=== PATIENT | female | born 1970 | race Caucasian/White ===

== ENCOUNTER → 2023-06-20 08:41 | Outpatient (CLI) | payer OTHER, SELFPAY ==
--- NOTE | 2023-06-20 08:46 | DI.RAD.S_ITS ---
PROCEDURE: XR LUMBAR SPINE 2-3V INDICATIONS: L SPINE PAIN TECHNIQUE: 3 views of the lumbar spine were acquired. COMPARISON: None. FINDINGS: Bones: 5 [id number] vertebrae are present. There is normal bony alignment. No vertebral body compression fractures. No suspicious bony lesions. Convex right thoracolumbar scoliosis. Disc space narrowing and facet joints noted at the thoracolumbar junction as well as lower lumbar spine Soft tissues: Overlying bowel gas pattern is normal. No suspicious soft tissue calcifications. IMPRESSION: Degenerative disc disease and arthropathy without malalignment Approved by: Jerry Meyer M.D. on 06/20/2023 at 18:55
== END ==
PROVIDERS: PCP Family Medicine; Referring Provider Family Medicine; Visit Provider Family Medicine
DX: M51.16 Intervertebral disc disorders with radiculopathy, lumbar region (principal); M47.26 Other spondylosis with radiculopathy, lumbar region; M54.9 Dorsalgia, unspecified
CPT/HCPCS: 72100

== ENCOUNTER → 2023-06-30 10:10 | Outpatient (CLI) | payer OTHER, SELFPAY ==
--- NOTE | 2023-06-30 | DI.MRI.S_ITS ---
PROCEDURE: MR LUMBAR SPINE WO CON INDICATIONS: Sciatica, right side TECHNIQUE: Noncontrast sagittal T1 spin echo and T2 fast echo, sagittal STIR, and T2 fast spin echo through the lumbar spine. In cases with scoliosis, additional coronal T2 fast spin echo may be performed. COMPARISON: None. FINDINGS: Image quality: Excellent. Alignment and Curvature: There is normal bony alignment. Bone Marrow: Marrow is of normal overall signal. No acute vertebral body compression fractures. Spinal Cord: Conus medullaris terminates at the L1 level. Visualized cord demonstrates normal signal and size. Paraspinous Soft Tissues: No paravertebral masses. T12-L1: Normal appearance. L1-L2: Broad-based disc bulge, opposing Modic changes, facet effusions. L2-L3: Bilateral facet arthrosis, right greater than left. L3-L4: Broad-based disc bulge, facet hypertrophy. L4-L5: Abnormal masslike appearance of the right L4 nerve root (series 5, image 23 and series 2, image 9). Facet hypertrophy and right facet effusion. L5-S1: Broad-based disc bulge, facet hypertrophy. 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 Recommend lumbar MRI with contrast for confirmation. Mild, multilevel degenerative disc disease and facet arthrosis. No significant spinal canal or neural foraminal narrowing. Dictated by: Bonilla Orozco M.D. on 07/01/2023 at 8:12 Approved by: Bonilla Orozco M.D. on 07/01/2023 at 8:21
== END ==
LOC: MRI 10:11
PROVIDERS: PCP Family Medicine; Referring Provider Family Medicine; Visit Provider Family Medicine
DX: M51.16 Intervertebral disc disorders with radiculopathy, lumbar region (principal); M51.17 Intervertebral disc disorders with radiculopathy, lumbosacral region; M47.26 Other spondylosis with radiculopathy, lumbar region; M47.27 Other spondylosis with radiculopathy, lumbosacral region; M54.9 Dorsalgia, unspecified; G54.9 Nerve root and plexus disorder, unspecified
CPT/HCPCS: 72148

== ENCOUNTER → 2023-08-01 07:37 | Outpatient (CLI) | payer OTHER, SELFPAY ==
--- NOTE | 2023-08-01 07:38 | DI.MRI.S_ITS ---
PROCEDURE: MR LUMBAR SPINE WO/W CON INDICATIONS: LUMBAR RADICULOPATHY TECHNIQUE: Noncontrast sagittal T1 spin echo and T2 fast spin echo, sagittal STIR, axial T1 and T2 fast spin echo through the lumbar spine. In cases with scoliosis, additional coronal T2 fast spin echo may be performed. After the administration of contrast, sagittal and axial T1 spin echo with fat saturation through the lumbar spine. COMPARISON: [facility], MR, MR LUMBAR SPINE WO CON, 06/30/2023, 11:00. FINDINGS: Image quality: Excellent. Alignment and curvature: Trace retrolisthesis of L1 on L2 and L3 on L4. Marrow: Marrow is of normal overall signal. No acute vertebral body compression fractures. No suspicious marrow enhancement. Spinal cord: Conus medullaris terminates at the T12-L1 level. Visualized spinal cord demonstrates normal signal, without suspicious enhancement. Paraspinous soft tissues: No paravertebral masses or abnormal enhancement. T12-L1: No canal stenosis or foraminal stenosis. L1-L2: Severe chronic disc height loss. Posterior disc post osteophyte. Mild facet hypertrophy. No canal stenosis or foraminal stenosis. L2-L3: No canal stenosis. There is right foraminal annulus tear plus small focal right foraminal disc protrusion which mildly impinges on the right L2 nerve root far laterally.. Reference sagittal T2 images 5 and 6 of series 5 as well as axial T2 image 11 of series 7. Left foramen is patent. L3-L4: Mild broad-based disc bulge and minimal central superimposed disc protrusion. Facet hypertrophy. Posterior epidural lipomatosis. Mild canal stenosis. Mild left foraminal stenosis. L4-L5: The abnormality seen on the previous noncontrast study is an extruded disc fragment which sits in the right foramen. It enhances peripherally. It appears to result in right L4 nerve root edema and swelling. It would result in a probable right L4 radiculitis. L5-S1: Disc bulge. Mild facet hypertrophy. Epidural lipomatosis. No significant canal stenosis or foraminal stenosis. IMPRESSION: 1. The abnormality seen on the previous MRI is consistent with and excreted disc fragment sitting in the right foramen at L4-L5, impinging on the right L4 nerve root. It would likely result in a right L4 radiculitis. 2. There is a small focal right foraminal disc protrusion at L2-L3 which mildly impinges on the right L2 nerve root far laterally. 3. Multilevel underlying facet arthropathy. 4. Mild canal stenosis at L3-L4. Dictated by: Maikel Wood M.D. on 08/01/2023 at 14:15 Approved by: Maikel Wood M.D. on 08/01/2023 at 14:26
== END ==
LOC: MRI 07:38
PROVIDERS: PCP Family Medicine; Referring Provider Orthopaedic Surgery Orthopaedic Surgery of the Spine; Visit Provider Orthopaedic Surgery Orthopaedic Surgery of the Spine
DX: M51.16 Intervertebral disc disorders with radiculopathy, lumbar region (principal); M51.17 Intervertebral disc disorders with radiculopathy, lumbosacral region; M47.26 Other spondylosis with radiculopathy, lumbar region; M47.27 Other spondylosis with radiculopathy, lumbosacral region; M48.061 Spinal stenosis, lumbar region without neurogenic claudication
CPT/HCPCS: 72158; A9579